=== PATIENT | male | born 1950 | race Caucasian/White ===

== ENCOUNTER → 2019-12-02 | Outpatient (CLI) | payer MEDICARE, OTHER ==
[~2019-12-02] MED LIST: ACET65TA OR; AMAR1TAB6; ASPI81TA45 OR; ASPI81TA83 OR; ASPI81TA85 PO; CAND32TA PO; COUM1TAB18; COUMADIN OR; COZA50TA18 OR; FISH1000 OR; GLIM1TAB4 PO; GLUCTAB2; GLUCTAB2 OR; HUMU1INJ; JANUVIA PO; LOSA50TA88 PO; METF10004 PO; OMEG10002 PO; PERC5TAB8 OR; SIMV10TA21 PO; STARLIX OR; TRAM50TA2 PO; ZOCO20TA OR
== END ==
LOC: M LABSMTC 11:42
PROVIDERS: ATTEND Anesthesiology
DX: Z03.818 Encounter for observation for suspected exposure to other biological agents ruled out (principal); Z11.59 Encounter for screening for other viral diseases
CPT/HCPCS: C9803; U0003

== ENCOUNTER 2019-12-05 08:41 | Day surgery (SDC) | payer MEDICARE, OTHER ==
[~2019-12-05] VITALS: Ht 170.2 cm; Wt 95.7 kg
[~2019-12-05 08:41] MED LIST changes: -HUMU1INJ; +NS 1,000 ML IV ONE
[2019-12-05] MEDS ORDERED: HUMU1INJ (09:49)
[2019-12-05] MEDS ORDERED: propofoL 200 MG/20 ML VIAL As Ordered ONE (10:27)
--- NOTE | 2019-12-05 10:46 | ROOR ---
Patient Name: Serjio Carr Procedure Date: 12/05/2019 10:24 AM Date of : 1950 Age: 69 Room: [facility] Gender: Male Note Status: Finalized Procedure: Total Colonoscopy to Cecum + Cold Snare Polypectomy Indications: High risk colon cancer surveillance: Personal history of colonic polyps, Last colonoscopy: 2014 Providers: Alphonso Lewis MD Referring MD: Aydee Rose DO Requesting Provider: Medicines: Monitored Anesthesia Care Complications: No immediate complications. Procedure: Pre-Anesthesia Assessment: - The heart rate, respiratory rate, oxygen saturations, blood pressure, adequacy of pulmonary ventilation, and response to care were monitored throughout the procedure. The Colonoscope was introduced through the anus and advanced to the cecum, identified by appendiceal orifice and ileocecal valve. The colonoscopy was performed without difficulty. The patient tolerated the procedure well. The quality of the bowel preparation was good. Findings: The perianal and digital rectal examinations were normal. Non-bleeding internal hemorrhoids were found during retroflexion. The hemorrhoids were small and Grade I (internal hemorrhoids that do not prolapse). A small polyp was found in the transverse colon. The polyp was sessile. The polyp was removed with a cold snare. Resection and retrieval were complete. The exam was otherwise without abnormality on direct and retroflexion views. Impression: - Non-bleeding internal hemorrhoids. - One small polyp in the transverse colon, removed with a cold snare. Resected and retrieved. - The examination was otherwise normal on direct and retroflexion views. - The exam was otherwise normal to the cecum. Recommendation: - Patient has a contact number available for emergencies. The signs and symptoms of potential delayed complications were discussed with the patient. Return to normal activities tomorrow. Written discharge instructions were provided to the patient. - High fiber diet. - Discharge patient to home. - Continue present medications. - Await pathology results. - Repeat colonoscopy in 5 years for surveillance based on pathology results. - Return to referring physician. - The findings and recommendations were discussed with the patient's family. Alphonso Lewis MD Alphonso Lewis MD 12/05/2019 10:45:23 AM Electronically signed by Alphonso Lewis MD Number of Addenda: 0 Note Initiated On: 12/05/2019 10:24 AM Estimated Blood Loss: Estimated blood loss: none.
[2019-12-05 11:00] VITALS: BP 118/65
== END 2019-12-05 11:12 | disposition home or self-care (01) ==
LOC: M OPP 08:41
PROVIDERS: ATTEND Internal Medicine Gastroenterology
DX: Z12.11 Encounter for screening for malignant neoplasm of colon (principal); Z86.010 Personal history of colon polyps; D12.3 Benign neoplasm of transverse colon; K64.0 First degree hemorrhoids; I10 Essential (primary) hypertension; Z79.82 Long term (current) use of aspirin; Z79.4 Long term (current) use of insulin; Z79.899 Other long term (current) drug therapy; Z87.891 Personal history of nicotine dependence